=== PATIENT | female | born 1965 | race Caucasian/White ===

== ENCOUNTER 2016-11-27 21:44 | Emergency (ER) | payer SELFPAY ==
[2016-11-27] MEDS ORDERED: Sodium Chloride 0.9% 10 ML Syringe FLUSH PRN (21:54)
[2016-11-27] MEDS ORDERED: Ampicillin/Sulbactam Na 3 GM in Sodium Chloride 0.9% 100 ML IV ONE (21:56)
[2016-11-27 22:07] VITALS: BP 138/96
--- NOTE | 2016-11-30 07:53 | ER ---
Date of Service: SUBJECTIVE: Cari presents to the emergency room with complaints of a cat bite to posterior aspect of both her hands. The patient states that she was bitten in both of her hands when she was attempting to take her cat to have him neutered. She states that the animals rabies is up to date. She states that this happened approximately 24 hours coming to the emergency room. She stated that she has been experiencing redness and swelling from the cat bites throughout the day today. PAST MEDICAL HISTORY: None. MEDICATIONS: Tylenol PM. ALLERGIES: NKDA. REVIEW OF SYSTEMS: General: No fever. Positive for chills. HEENT: No sore throat, rhinorrhea, or congestion. Respiratory: No shortness breath. Cardiac: Denies any substernal chest pain. No jaw, arm, neck, or back pain. GI: No nausea, vomiting, or diarrhea. No melena, hematochezia, or hematemesis. : Denies any dysuria. Musculoskeletal: Please see history of present illness. PHYSICAL EXAMINATION: General: A 51-year-old female patient, in no acute distress. Vital Signs: Blood pressure is 139/76, pulse rate 76, temperature is 36.6, respiratory rate is 16, O2 saturations 97%. Skin: Warm, pink, and dry. Musculoskeletal: The patient has edema and erythema to the dorsal aspect of both of her hands. No discharge is noted. There are several small puncture wounds to the backs of both of her hands. Neurovascular, circulation, sensation, and motor function all within normal limits in the distal portion of the upper extremities. LABORATORY DATA: WBCs 10.8, hemoglobin is 13.6, platelets are 277. Chemistry; sodium is 139, potassium is 4.3, chloride is 104, bicarb is 25, BUN is 12, creatinine is 1.0, creatinine clearance is 66.39, GFR is 58, glucose is 102, lactic acid is 1.0, calcium is 8.8, corrected calcium is 8.72. Total bilirubin is 0.4, AST is 15, ALT is 20, alkaline phosphatase is 102, C-reactive protein is 2.9, total protein is 7.7, albumin is 4.1. Blood cultures x2 were obtained and are pending. ASSESSMENT: Cellulitis to the dorsal aspect of both of the patient's hands. PLAN: The patient will be discharged. She was started on IV Unasyn here and received her first dose here in the emergency room. I did discuss setting her up as an outpatient IV therapy patient for further doses of IV antibiotics versus admission, and the patient opted to be discharged and return in 6 hours for another dose of Unasyn. The patient will receive Unasyn 3 g every 6 hours. We will have her re-evaluated tomorrow at noon by Braden Brown to see if she needs more than a total of 3 doses of antibiotics or if she can start on oral antibiotics. I subsequently did write a prescription for Augmentin 875 mg 1 twice daily for 10 days. Again, follow up in the clinic in the next 7-10 days. All questions were answered. MWK: 11/28/2016 07:13:27 MODL: 11/28/2016 11:55:33 /[id number]
== END 2016-11-27 23:35 | disposition home or self-care (01) ==
LOC: VM.ED 21:44
DX: L03.114 Cellulitis of left upper limb (principal); L03.113 Cellulitis of right upper limb; S61.432A Puncture wound without foreign body of left hand, initial encounter; S61.431A Puncture wound without foreign body of right hand, initial encounter; W55.01XA Bitten by cat, initial encounter
CPT/HCPCS: 36415; 80053; 83605; 85025; 86140; 87040; 96365; 99283; J0295; J7050; 99284-GF